=== PATIENT | female | born 1975 | race Caucasian/White ===

== ENCOUNTER 2022-06-15 13:07 | Emergency (ER) | payer OTHER, BC ==
[2022-06-15] MEDS ORDERED: Ibuprofen 200 MG TAB ONE (14:23)
[2022-06-15] MEDS ORDERED: Cyclobenzaprine 10 MG TAB ONE (14:24)
[2022-06-15] MEDS ORDERED: Triple Antibiotic Oint 1 GM Packet ONE (14:37)
== END 2022-06-15 14:36 | disposition home or self-care (01) ==
LOC: CSHERS 13:07
DX: M79.10 Myalgia, unspecified site (principal); T22.012A Burn of unspecified degree of left forearm, initial encounter; V89.2XXA Person injured in unspecified motor-vehicle accident, traffic, initial encounter; Y92.410 Unspecified street and highway as the place of occurrence of the external cause
CPT/HCPCS: 72040